=== PATIENT | female | born 1955 | race African-American/Black ===

== ENCOUNTER 2017-12-14 14:30 | Outpatient (CLI) | payer BC | END 2017-12-14 14:31 | disposition home or self-care (01) | LOC: BICCT 14:30 | PROVIDERS: ATTEND Podiatrist Foot & Ankle Surgery | DX: M79.671 Pain in right foot (principal); M79.672 Pain in left foot ==

== ENCOUNTER 2021-05-24 15:28 | Emergency (ER) | payer BC, MEDICARE | END 2021-05-24 16:47 | disposition home or self-care (01) | LOC: ERS 15:28 | DX: R20.2 Paresthesia of skin (principal); L84 Corns and callosities; R60.9 Edema, unspecified; I10 Essential (primary) hypertension; E11.9 Type 2 diabetes mellitus without complications; Z79.84 Long term (current) use of oral hypoglycemic drugs; Z79.899 Other long term (current) drug therapy | CPT/HCPCS: 99283 ==